=== PATIENT | female | born 1975 | race Caucasian/White ===

== ENCOUNTER 2021-02-11 15:02 | Observation (INO) ==
[~2021-02-11 15:02] MED LIST: *HR* LORazepam 2 MG/ML VIAL ONE
[2021-02-11] MEDS ORDERED: *HR* HYDROcodone/Acet 5/325 mg TABLET PO ONE (19:29)
[2021-02-11] MEDS ORDERED: methocarbamoL 500 MG TABLET PO ONE (19:32)
[2021-02-11] MEDS ORDERED: Morphine Sulfate 2 MG/ML SYRINGE IVP PRN (21:46)
[2021-02-12] MEDS ORDERED: Morphine Sulfate 2 MG/ML SYRINGE IVP ONE (05:00)
[2021-02-12] MEDS ORDERED: *HR* FentaNYL PATCH 50 MCG PATCH TD ONE (09:22)
[2021-02-12] MEDS ORDERED: Ondansetron 4 MG/2 ML VIAL IVP PRN (11:16)
[2021-02-12] MEDS ORDERED: Acetaminophen 325 MG TABLET PO PRN (11:16)
[2021-02-12] MEDS ORDERED: Naloxone 0.4 MG/ML INJ IVP PRN (11:16)
[2021-02-12] MEDS ORDERED: Magic Mouthwash 10 ML UD Cup PO PRN (11:19)
[2021-02-12] MEDS ORDERED: polyethylene glycoL 3350 17 GM POWD.PACK PO PRN (11:19)
[2021-02-12] MEDS ORDERED: Ondansetron ODT 4 MG TAB.RAPDIS PO PRN (11:19)
[2021-02-12] MEDS: Sucralfate 1 GM TABLET PO SCH ×3 (12:15→20:20)
[2021-02-12] MEDS: tiZANidine 4 MG TABLET PO SCH ×2 (14:01→20:22)
[2021-02-12] MEDS: *HR* HYDROcodone/Acet 5/325 mg TABLET PO PRN (14:02)
[2021-02-12] MEDS: Multivit/Ca/Min/Fe/FA 1 TAB TABLET PO SCH (20:20)
[2021-02-12] MEDS: Pregabalin 50 MG CAPSULE PO SCH (20:20)
[2021-02-12] MEDS: hydrOXYzine pamoate 25 MG CAPSULE PO SCH (20:21)
[2021-02-12] MEDS: Divalproex (12 HR) 500 MG TABLET PO SCH (20:22)
[2021-02-12] MEDS: QUEtiapine Fumarate 100 MG TABLET PO SCH (20:23)
[2021-02-12] MEDS: Psyllium 1 PACKET POWD.PACK PO SCH (20:25)
[2021-02-12] MEDS: Cyanocobalamin (B-12) 1,000 MCG TABLET PO SCH (20:25)
[2021-02-12] MEDS ORDERED: QUEtiapine Fumarate 25 MG TABLET PO SCH (21:00)
[2021-02-13] MEDS: *HR* HYDROcodone/Acet 5/325 mg TABLET PO PRN ×2 (02:10→08:10)
[2021-02-13 04:44] LABS: Hematocrit 35.7 % (35.3-44.9); Hemoglobin 11.8 g/dL (11.5-15.4); Mean Corpuscular HGB Conc 33.1 g/dL (31.6-35.5); Mean Corpuscular Hemoglobin 28.7 pg (28.0-33.3); Mean Corpuscular Volume 86.9 fL (83.0-100.0); Mean Platelet Volume 10.6 fL (9.4-12.4); Platelet Count 248 K/mcL (140-400); Red Blood Count 4.11 M/mcL (3.82-4.97); Red Cell Distribution Width 13.2 % (11.5-14.5); White Blood Count 7.4 K/mcL (4.3-11.1)
[2021-02-13 05:09] LABS: BUN/Creatinine Ratio 18 (6-26); Blood Urea Nitrogen 15 mg/dL (6-20); Carbon Dioxide 25 mEq/L (23-29); Chloride 104 mEq/L (98-107); Glucose 104 mg/dL (70-105); Osmolality,Calculated 283 (280-300); Sodium 136 mEq/L (136-145); eGFR For African Americans > 60 (> 60); eGFR For Non-African Americans > 60 (> 60)
[2021-02-13] MEDS: QUEtiapine Fumarate 100 MG TABLET PO SCH ×2 (08:09→21:20)
[2021-02-13] MEDS: Divalproex (12 HR) 500 MG TABLET PO SCH ×2 (08:09→21:19)
[2021-02-13] MEDS: Pregabalin 50 MG CAPSULE PO SCH ×2 (08:10→21:17)
[2021-02-13] MEDS: Cyanocobalamin (B-12) 1,000 MCG TABLET PO SCH ×2 (08:10→21:19)
[2021-02-13] MEDS: Multivit/Ca/Min/Fe/FA 1 TAB TABLET PO SCH ×2 (08:10→21:17)
[2021-02-13] MEDS: Sucralfate 1 GM TABLET PO SCH ×4 (08:10→21:18)
[2021-02-13] MEDS: Psyllium 1 PACKET POWD.PACK PO SCH ×2 (08:11→21:17)
[2021-02-13] MEDS: tiZANidine 4 MG TABLET PO SCH ×3 (08:11→21:19)
[2021-02-13] MEDS: hydrOXYzine pamoate 25 MG CAPSULE PO SCH ×2 (08:11→21:20)
[2021-02-13] MEDS ORDERED: *HR* OxyCODONE/APAP 5/325 TABLET PO PRN (12:39)
[2021-02-13] MEDS: *HR* OxyCODONE/APAP 7.5/325 TABLET PO PRN ×2 (15:09→21:18)
[2021-02-14] MEDS: *HR* OxyCODONE/APAP 7.5/325 TABLET PO PRN ×4 (04:21→23:35)
[2021-02-14] MEDS: Psyllium 1 PACKET POWD.PACK PO SCH ×2 (08:24→20:39)
[2021-02-14] MEDS: QUEtiapine Fumarate 100 MG TABLET PO SCH ×2 (08:24→20:41)
[2021-02-14] MEDS: Cyanocobalamin (B-12) 1,000 MCG TABLET PO SCH ×2 (08:24→20:40)
[2021-02-14] MEDS: hydrOXYzine pamoate 25 MG CAPSULE PO SCH ×2 (08:24→20:40)
[2021-02-14] MEDS: Divalproex (12 HR) 500 MG TABLET PO SCH ×2 (08:24→20:40)
[2021-02-14] MEDS: tiZANidine 4 MG TABLET PO SCH ×3 (08:25→20:41)
[2021-02-14] MEDS: Multivit/Ca/Min/Fe/FA 1 TAB TABLET PO SCH ×2 (08:25→20:41)
[2021-02-14] MEDS: Pregabalin 50 MG CAPSULE PO SCH ×2 (08:25→20:40)
[2021-02-14] MEDS: Sucralfate 1 GM TABLET PO SCH ×4 (08:30→20:41)
[2021-02-14 19:20] VITALS: BP 104/69; PULSE 80; RESP 12; TEMP 98.1; O2SAT 93
== END 2021-02-15 | disposition short-term general hospital (02) ==
LOC: EMEROOGRE 15:02 → INPGRE 15:02
PROVIDERS: ADMIT Family Medicine; ATTEND Family Medicine

== ENCOUNTER 2021-06-08 00:25 | Observation (INO) ==
[2021-06-08] MEDS ORDERED: methylPREDNISolone 125 MG/2 ML VIAL IM STA (00:56)
[2021-06-08] MEDS ORDERED: Orphenadrine 60 MG/2 ML VIAL IM ONE (00:56)
[2021-06-08] MEDS ORDERED: *HR* OxyCODONE/APAP 7.5/325 TABLET PO STA ×2 (00:56→05:04)
[2021-06-08] MEDS ORDERED: Naloxone 0.4 MG/ML INJ IVP PRN (05:31)
[2021-06-08] MEDS ORDERED: *HR* HYDROcodone/Acet 5/325 mg TABLET PO PRN (06:00)
[2021-06-08] MEDS ORDERED: *HR* OxyCODONE Immed Rel 5 MG TABLET PO PRN (06:00)
[2021-06-08] MEDS ORDERED: Acetaminophen 325 MG TABLET PO PRN ×2 (06:00→06:05)
[2021-06-08] MEDS ORDERED: polyethylene glycoL 3350 17 GM POWD.PACK PO PRN (06:05)
[2021-06-08] MEDS: Ondansetron ODT 4 MG TAB.RAPDIS SL SCH ×3 (06:41→18:51)
[2021-06-08] MEDS: Sucralfate 1 GM TABLET PO SCH ×4 (06:41→21:22)
[2021-06-08] MEDS: Multivit/Ca/Min/Fe/FA 1 TAB TABLET PO SCH ×2 (09:09→21:22)
[2021-06-08] MEDS: Cyanocobalamin (B-12) 1,000 MCG TABLET PO SCH ×2 (09:09→21:22)
[2021-06-08] MEDS: Pregabalin 50 MG CAPSULE PO SCH ×2 (09:10→21:21)
[2021-06-08] MEDS: hydrOXYzine pamoate 25 MG CAPSULE PO SCH ×2 (09:10→21:22)
[2021-06-08] MEDS: QUEtiapine Fumarate 25 MG TABLET PO SCH ×2 (09:11→15:37)
[2021-06-08] MEDS: tiZANidine 4 MG TABLET PO SCH ×3 (09:11→21:21)
[2021-06-08] MEDS: Divalproex (12 HR) 500 MG TABLET PO SCH ×2 (09:11→21:22)
[2021-06-08] MEDS: Psyllium 1 PACKET POWD.PACK PO SCH ×2 (09:12→21:20)
[2021-06-08] MEDS: BUPRENORPHINE HCL 300 MCG SL SCH ×2 (09:12→21:23)
[2021-06-08] MEDS: *HR* OxyCODONE Immed Rel 5 MG TABLET PO PRN ×3 (09:28→21:41)
[2021-06-08] MEDS: MethylPREDNISolone 40 MG/ML VIAL IVP SCH (19:02)
[2021-06-08] MEDS: QUEtiapine Fumarate 100 MG TABLET PO SCH (21:21)
[2021-06-09] MEDS: MethylPREDNISolone 40 MG/ML VIAL IVP SCH ×2 (00:39→04:59)
[2021-06-09] MEDS: Ondansetron ODT 4 MG TAB.RAPDIS SL SCH ×4 (00:39→16:49)
[2021-06-09] MEDS: *HR* OxyCODONE Immed Rel 5 MG TABLET PO PRN ×3 (04:58→18:05)
[2021-06-09] MEDS: Sucralfate 1 GM TABLET PO SCH ×4 (04:58→21:50)
[2021-06-09] MEDS: *HR* Enoxaparin 40 MG/0.4 ML SYRINGE SQ SCH (05:45)
[2021-06-09 06:08] LABS: Hematocrit 37.5 % (35.3-44.9); Hemoglobin 12.3 g/dL (11.5-15.4); Mean Corpuscular HGB Conc 32.8 g/dL (31.6-35.5); Mean Corpuscular Hemoglobin 29.1 pg (28.0-33.3); Mean Corpuscular Volume 88.9 fL (83.0-100.0); Mean Platelet Volume 10.4 fL (9.4-12.4); Platelet Count 246 K/mcL (140-400); Red Blood Count 4.22 M/mcL (3.82-4.97); Red Cell Distribution Width 13.6 % (11.5-14.5); White Blood Count 6.2 K/mcL (4.3-11.1)
[2021-06-09 06:44] LABS: Alanine Aminotransferase 31 Units/L (7-52); Albumin 3.8 g/dL (3.5-5.7); Albumin/Globulin Ratio 1.7 (1.1-2.2); Alkaline Phosphatase 71 Units/L (34-104); Aspartate Amino Transferase 18 Units/L (13-39); BUN/Creatinine Ratio 19 (6-26); Bilirubin,Total 0.5 mg/dL (0.3-1.0); Blood Urea Nitrogen 17 mg/dL (6-20); Carbon Dioxide 26 mEq/L (23-29); Chloride 104 mEq/L (98-107); Globulin 2.3 g/dL (2.4-3.5); Glucose 217 mg/dL (70-105); Magnesium 1.8 mg/dL (1.6-2.6); Osmolality,Calculated 294 (280-300); Potassium 4.1 mEq/L (3.5-5.1); Sodium 138 mEq/L (136-145); Total Protein 6.1 g/dL (6.4-8.9); eGFR For African Americans > 60 (> 60); eGFR For Non-African Americans > 60 (> 60)
[2021-06-09] MEDS: *HR* HYDROcodone/Acet 5/325 mg TABLET PO PRN ×2 (09:02→15:08)
[2021-06-09] MEDS: hydrOXYzine pamoate 25 MG CAPSULE PO SCH ×2 (09:03→21:45)
[2021-06-09] MEDS: tiZANidine 4 MG TABLET PO SCH ×3 (09:03→21:47)
[2021-06-09] MEDS: QUEtiapine Fumarate 25 MG TABLET PO SCH ×2 (09:03→15:04)
[2021-06-09] MEDS: Divalproex (12 HR) 500 MG TABLET PO SCH ×2 (09:03→21:48)
[2021-06-09] MEDS: Pregabalin 50 MG CAPSULE PO SCH ×2 (09:03→21:49)
[2021-06-09] MEDS: Multivit/Ca/Min/Fe/FA 1 TAB TABLET PO SCH ×2 (09:03→21:49)
[2021-06-09] MEDS: Cyanocobalamin (B-12) 1,000 MCG TABLET PO SCH ×2 (09:04→21:49)
[2021-06-09] MEDS: BUPRENORPHINE HCL 300 MCG SL SCH ×2 (09:05→21:51)
[2021-06-09] MEDS: Psyllium 1 PACKET POWD.PACK PO SCH ×2 (09:05→21:48)
[2021-06-09] MEDS ORDERED: Naloxone 0.4 MG/ML INJ IVP PRN (17:01)
[2021-06-09] MEDS ORDERED: MethylPREDNISolone 40 MG/ML VIAL IVP SCH (18:00)
[2021-06-09] MEDS: QUEtiapine Fumarate 100 MG TABLET PO SCH (21:50)
[2021-06-10] MEDS: Ondansetron ODT 4 MG TAB.RAPDIS SL SCH ×4 (01:00→16:39)
[2021-06-10] MEDS: *HR* OxyCODONE Immed Rel 5 MG TABLET PO PRN ×4 (04:39→22:55)
[2021-06-10] MEDS: *HR* Enoxaparin 40 MG/0.4 ML SYRINGE SQ SCH ×2 (04:45→07:43)
[2021-06-10 06:52] LABS: Basophils % 0.3 %; Eosinophils # 0.1 K/mcL (0.0-0.6); Eosinophils % 1.3 %; Hematocrit 35.4 % (35.3-44.9); Hemoglobin 11.6 g/dL (11.5-15.4); Immature Granulocytes % 0.3 % (0-4); Lymphocytes # 4.3 K/mcL (0.6-4.6); Lymphocytes % 54.5 %; Mean Corpuscular HGB Conc 32.8 g/dL (31.6-35.5); Mean Corpuscular Hemoglobin 29.1 pg (28.0-33.3); Mean Corpuscular Volume 88.9 fL (83.0-100.0); Mean Platelet Volume 10.4 fL (9.4-12.4); Monocytes # 0.5 K/mcL (0.0-1.3); Monocytes % 6.5 %; Platelet Count 222 K/mcL (140-400); Red Blood Count 3.98 M/mcL (3.82-4.97); Red Cell Distribution Width 13.4 % (11.5-14.5); Segmented Neutrophils % 37.1 %
[2021-06-10 08:17] LABS: BUN/Creatinine Ratio 18 (6-26); Blood Urea Nitrogen 14 mg/dL (6-20); Calcium 8.7 mg/dL (8.6-10.3); Carbon Dioxide 27 mEq/L (23-29); Chloride 102 mEq/L (98-107); Glucose 119 mg/dL (70-105); Osmolality,Calculated 284 (280-300); Potassium 3.7 mEq/L (3.5-5.1); Sodium 136 mEq/L (136-145); eGFR For African Americans > 60 (> 60); eGFR For Non-African Americans > 60 (> 60)
[2021-06-10] MEDS: MethylPREDNISolone 40 MG/ML VIAL IVP SCH (09:12)
[2021-06-10] MEDS: Psyllium 1 PACKET POWD.PACK PO SCH ×2 (09:16→21:05)
[2021-06-10] MEDS: BUPRENORPHINE HCL 300 MCG SL SCH ×2 (09:17→21:18)
[2021-06-10] MEDS: Multivit/Ca/Min/Fe/FA 1 TAB TABLET PO SCH ×2 (09:17→21:03)
[2021-06-10] MEDS: *HR* HYDROcodone/Acet 5/325 mg TABLET PO PRN ×2 (09:17→21:05)
[2021-06-10] MEDS: Pregabalin 50 MG CAPSULE PO SCH ×2 (09:18→21:03)
[2021-06-10] MEDS: tiZANidine 4 MG TABLET PO SCH ×3 (09:18→21:00)
[2021-06-10] MEDS: Sucralfate 1 GM TABLET PO SCH ×4 (09:19→21:04)
[2021-06-10] MEDS: Cyanocobalamin (B-12) 1,000 MCG TABLET PO SCH ×2 (09:19→21:02)
[2021-06-10] MEDS: Divalproex (12 HR) 500 MG TABLET PO SCH ×2 (09:19→21:04)
[2021-06-10] MEDS: hydrOXYzine pamoate 25 MG CAPSULE PO SCH ×2 (09:20→21:01)
[2021-06-10] MEDS: QUEtiapine Fumarate 25 MG TABLET PO SCH ×2 (09:20→14:45)
[2021-06-10 12:20] LABS: Estimated Average Glucose 103 mg/dl; Hemoglobin A1C 5.2 %
[2021-06-10] MEDS: QUEtiapine Fumarate 100 MG TABLET PO SCH (21:00)
[2021-06-10] MEDS: Ondansetron ODT 4 MG TAB.RAPDIS SL PRN (21:14)
[2021-06-11] MEDS: Sucralfate 1 GM TABLET PO SCH ×4 (05:36→20:27)
[2021-06-11] MEDS: *HR* OxyCODONE Immed Rel 5 MG TABLET PO PRN ×3 (05:37→18:00)
[2021-06-11] MEDS: *HR* Enoxaparin 40 MG/0.4 ML SYRINGE SQ SCH (05:39)
[2021-06-11] MEDS: MethylPREDNISolone 40 MG/ML VIAL IVP SCH (08:08)
[2021-06-11] MEDS: Divalproex (12 HR) 500 MG TABLET PO SCH ×2 (08:10→20:29)
[2021-06-11] MEDS: Cyanocobalamin (B-12) 1,000 MCG TABLET PO SCH ×2 (08:11→20:27)
[2021-06-11] MEDS: Pregabalin 50 MG CAPSULE PO SCH ×2 (08:11→20:27)
[2021-06-11] MEDS: Multivit/Ca/Min/Fe/FA 1 TAB TABLET PO SCH ×2 (08:11→20:26)
[2021-06-11] MEDS: Psyllium 1 PACKET POWD.PACK PO SCH ×2 (08:13→20:26)
[2021-06-11] MEDS: QUEtiapine Fumarate 25 MG TABLET PO SCH ×2 (08:13→16:04)
[2021-06-11] MEDS: tiZANidine 4 MG TABLET PO SCH ×3 (08:13→20:29)
[2021-06-11] MEDS: hydrOXYzine pamoate 25 MG CAPSULE PO SCH ×2 (08:13→20:28)
[2021-06-11] MEDS: BUPRENORPHINE HCL 300 MCG SL SCH ×2 (08:14→20:29)
[2021-06-11] MEDS: *HR* HYDROcodone/Acet 5/325 mg TABLET PO PRN ×2 (08:28→16:05)
[2021-06-11] MEDS: Ondansetron ODT 4 MG TAB.RAPDIS SL PRN ×2 (08:28→16:09)
[2021-06-11] MEDS: QUEtiapine Fumarate 100 MG TABLET PO SCH (20:29)
[2021-06-12] MEDS: *HR* OxyCODONE Immed Rel 5 MG TABLET PO PRN ×3 (00:30→12:49)
[2021-06-12] MEDS: *HR* HYDROcodone/Acet 5/325 mg TABLET PO PRN ×2 (03:39→11:40)
[2021-06-12] MEDS: Sucralfate 1 GM TABLET PO SCH ×2 (06:02→11:43)
[2021-06-12] MEDS: *HR* Enoxaparin 40 MG/0.4 ML SYRINGE SQ SCH (06:03)
[2021-06-12 07:42] VITALS: PULSE 64
[2021-06-12] MEDS: MethylPREDNISolone 40 MG/ML VIAL IVP SCH (07:50)
[2021-06-12] MEDS: Pregabalin 50 MG CAPSULE PO SCH (07:51)
[2021-06-12] MEDS: Psyllium 1 PACKET POWD.PACK PO SCH (07:51)
[2021-06-12] MEDS: Divalproex (12 HR) 500 MG TABLET PO SCH (07:51)
[2021-06-12] MEDS: tiZANidine 4 MG TABLET PO SCH ×2 (07:51→12:54)
[2021-06-12] MEDS: Multivit/Ca/Min/Fe/FA 1 TAB TABLET PO SCH (07:51)
[2021-06-12] MEDS: hydrOXYzine pamoate 25 MG CAPSULE PO SCH (07:51)
[2021-06-12] MEDS: QUEtiapine Fumarate 25 MG TABLET PO SCH ×2 (07:51→15:46)
[2021-06-12] MEDS: Cyanocobalamin (B-12) 1,000 MCG TABLET PO SCH (07:52)
[2021-06-12] MEDS: BUPRENORPHINE HCL 300 MCG SL SCH (07:52)
[2021-06-12 11:48] VITALS: BP 103/68; RESP 18; TEMP 97.6; O2SAT 94
[2021-06-12] MEDS: Ondansetron ODT 4 MG TAB.RAPDIS SL PRN (12:54)
== END 2021-06-12 16:16 | disposition home or self-care (01) ==
LOC: EMEROOGRE 00:25 → INPGRE 00:25
PROVIDERS: ADMIT Internal Medicine; ATTEND Internal Medicine